=== PATIENT | male | born 1990 | race Hispanic/Latino ===

== ENCOUNTER 2018-06-07 10:59 | Emergency (ER) | payer OTHER ==
[~2018-06-07] VITALS: Ht 182.9 cm; Wt 170.6 kg
--- NOTE | 2018-06-07 13:13 | Diagnostic Imaging Report ---
Elbow, Complete, right CPT code: 16499 History: No trauma, worsening pain for 2 weeks Technique: Three views of the right elbow were performed. Findings: The osseous structures are well-developed and mineralized without evidence of fracture, dislocation, focal osseous lesion. No joint effusion or degenerative changes. IMPRESSION: No osseous abnormality to explain pain. Signed by: Dr. Regine Gutierrez MD on 06/07/2018 1:10 PM
== END 2018-06-07 13:59 | disposition home or self-care (01) ==
LOC: ER 10:59
DX: M25.521 Pain in right elbow (principal); X50.9XXA Other and unspecified overexertion or strenuous movements or postures, initial encounter; E66.9 Obesity, unspecified
CPT/HCPCS: 99282